=== PATIENT | female | born 1960 | race African-American/Black ===

== ENCOUNTER 2018-07-26 10:32 | Emergency (ER) | payer MEDICARE, OTHER ==
--- NOTE | 2018-07-26 11:58 | RAD REPORT ---
EXAM DESCRIPTION: RAD -Hand Left 3 View - 07/26/2018 11:30 am CLINICAL HISTORY: Left hand pain FINDINGS: No fracture or dislocation is seen. The bones are osteoporotic. If patient has clinical symptoms to suggest an occult fracture follow-up x-ray in 1 week would be recommended
--- NOTE | 2018-07-26 12:15 | EDPHYS ---
Physician Documentation [facility] Name: Adelina Hernandez Age: 57 yrs Sex: Female : 1960 Arrival Date: 07/26/2018 Time: 10:34 Bed 12 Private MD: ED Physician Jurgen Soto HPI: 07/26 10:56 This 57 yrs old Black Female presents to ER via Ambulatory with complaints of Finger rh1 Injury. 10:56 The patient or guardian reports decreased range of motion, pain, swelling, tenderness. rh1 The complaints affect the dorsal aspect of distal phalanx of left little finger, dorsal aspect of middle phalanx of left little finger, palmar aspect of distal phalanx of left little finger and palmar aspect of middle phalanx of left little finger. Context: The problem was sustained at home, resulted from an unknown cause. Onset: The symptoms/episode began/occurred 3 day(s) ago. Modifying factors: The symptoms are alleviated by nothing, the symptoms are aggravated by movement. Associated signs and symptoms: Pertinent negatives: cyanosis distally, decreased sensation distally, fever, numbness distally, tingling distally. Severity of symptoms: At their worst the symptoms were moderate, in the emergency department the symptoms are unchanged. The patient has not experienced similar symptoms in the past. The patient has not recently seen a physician. She has pain, swelling and increased redness at the left 5th finger for the past 3 days. She denies any known trauma or injury, awoke with symptoms 3 days ago, thought she may have caught her finger in the sheets. She has no fever, no paresthesias.. Historical: - Allergies: 10:45 Iodine; la1 10:45 Naprosyn; la1 10:45 beta blockers; la1 10:45 NSAID; la1 10:45 Allergic to most pain medicine; la1 12:16 Sulfa (Sulfonamide Antibiotics); rh1 - PMHx: 10:45 Hypertension; sarcoidosis; OA; psuedotumor cerebri; la1 - Immunization history:: Adult Immunizations up to date. - Social history:: Smoking status: Patient uses tobacco products, denies chronic smoking, but will smoke occasionally, Smoking status: Patient uses tobacco products. - Ebola Screening: : No symptoms or risks identified at this time. ROS: 10:56 Constitutional: Negative for fever rh1 10:56 MS/extremity: Positive for decreased range of motion, erythema, pain, swelling, tenderness, Negative for abrasion, contusion, ecchymosis, paresthesias. 10:56 Skin: Positive for erythema. 10:56 Neuro: Negative for numbness, tingling. 10:56 All other systems are negative. Exam: 10:56 Constitutional: This is a well developed, well nourished patient who is awake, alert, rh1 and in no acute distress. Head/Face: Normocephalic, atraumatic. Cardiovascular: Regular rate and rhythm with a normal S1 and S2. No gallops, murmurs, or rubs. No JVD. No pulse deficits. Respiratory: Lungs have equal breath sounds bilaterally, clear to auscultation. No rales, rhonchi or wheezes noted. No increased work of breathing. 10:56 Musculoskeletal/extremity: Extremities: grossly normal except: noted in the palmar aspect of middle phalanx of left little finger and palmar aspect of distal phalanx of left little finger and dorsal aspect of middle phalanx of left little finger and dorsal aspect of distal phalanx of left little finger: decreased ROM, erythema, pain, swelling, tenderness, There is no evidence of abrasion, contusion, ecchymosis, laceration, ROM: full passive range of motion, in the palmar aspect of middle phalanx of left little finger and palmar aspect of distal phalanx of left little finger and dorsal aspect of middle phalanx of left little finger and dorsal aspect of distal phalanx of left little finger, limited active range of motion, in the palmar aspect of middle phalanx of left little finger and palmar aspect of distal phalanx of left little finger and dorsal aspect of middle phalanx of left little finger and dorsal aspect of distal phalanx of left little finger, limited active range of motion due to pain, in the palmar aspect of middle phalanx of left little finger and palmar aspect of distal phalanx of left little finger and dorsal aspect of middle phalanx of left little finger and dorsal aspect of distal phalanx of left little finger, limited passive range of motion due to pain, in the palmar aspect of middle phalanx of left little finger and palmar aspect of distal phalanx of left little finger and dorsal aspect of middle phalanx of left little finger and dorsal aspect of distal phalanx of left little finger, Pulses: are normal with no appreciated deficits, noted to be 2+ in the right radial artery and left radial artery, Perfusion: the extremity is warm, with brisk capillary refill, left 5th finger, Sensation intact. 10:56 Skin: abscess, not appreciated, induration, that is mild is noted, Other very minimal erythema and indurated area a medial left 5th finger. 10:56 Neuro: Orientation: is normal, to person, place \T\ time. Mentation: is normal, lucid, able to follow commands, Motor: is normal, moves all fours, strength is 5/5 in all extremities, Sensation: is normal, no obvious gross deficits, numbness, is not appreciated, tingling, is not appreciated, Gait: is steady, at a normal pace, without difficulty. Vital Signs: 10:46 Pulse 70; Resp 16; Temp 97.3(TE); Pulse Ox 98% on R/A; Weight 60.78 kg; Height 5 ft. 3 la1 in. (160.02 cm); 10:47 BP 165 / 96; la1 10:46 Body Mass Index 23.74 (60.78 kg, 160.02 cm) la1 MDM: 10:56 Patient medically screened. rh1 12:13 Data reviewed: vital signs, nurses notes, radiologic studies, plain films, and as a rh1 result, I will discharge patient. Data interpreted: Pulse oximetry: on room air is 98 %. Interpretation: normal. Counseling: I had a detailed discussion with the patient and/or guardian regarding: the historical points, exam findings, and any diagnostic results supporting the discharge/admit diagnosis, radiology results, the need for outpatient follow up, a family practitioner, a hand specialist, to return to the emergency department if symptoms worsen or persist or if there are any questions or concerns that arise at home. 07/26 10:53 Order name: Hand Left 3 View XRAY; Complete Time: 11:59 rh1 07/26 12:00 Order name: Finger Splint; Complete Time: 12:26 rh1 Administered Medications: No medications were administered Disposition: 15:29 Co-signature as Attending Physician, Jurgen Stoo MD I agree with the assessment and kdr plan of care. Disposition: 11/03/18 12:14 Discharged to Home. Impression: Cellulitis of left finger. - Condition is Stable. - Discharge Instructions: Cellulitis, Adult. - Prescriptions for Keflex 500 mg Oral Capsule - take 1 capsule by ORAL route every 12 hours for 10 days; 20 capsule. - Medication Reconciliation Form, Thank You Letter, Antibiotic Education, Prescription Opioid Use form. - Follow up: Private Physician; When: 1 - 2 days; Reason: Recheck today's complaints, Continuance of care, Re-evaluation by your physician. Follow up: Gaurang Ford MD; When: 1 - 2 days; Reason: Further diagnostic work-up, Recheck today's complaints, Continuance of care. Follow up: Emergency Department; When: As needed; Reason: Fever > 102 F, If symptoms return, Trouble breathing, Worsening of condition. - Problem is new. - Symptoms have improved. Signatures: Dispatcher [employer] EDMS Jurgen Soto MD MD [facility] Remington Roy RN RN la1 Sultana Alexander NP SENIOR PASTOR rh1 Lydia Polo RN RN hb Corrections: (The following items were deleted from the chart) 12:27 12:14 07/26/2018 12:14 Discharged to Home. Impression: Cellulitis of left finger. hb Condition is Stable. Forms are Medication Reconciliation Form, Thank You Letter, Antibiotic Education, Prescription Opioid Use. Follow up: Private Physician; When: 1 - 2 days; Reason: Recheck today's complaints, Continuance of care, Re-evaluation by your physician. Follow up: Gaurang Ford; When: 1 - 2 days; Reason: Further diagnostic work-up, Recheck today's complaints, Continuance of care. Follow up: Emergency Department; When: As needed; Reason: Fever > 102 F, If symptoms return, Trouble breathing, Worsening of condition. Problem is new. Symptoms have improved. rh1
--- NOTE | 2018-07-26 12:15 | ER ---
Nurse's Notes [facility] Name: Adelina Hernandez Age: 57 yrs Sex: Female : 1960 Arrival Date: 07/26/2018 Time: 10:34 Bed 12 Private MD: Diagnosis: Cellulitis of left finger Presentation: 07/26 10:45 Presenting complaint: Patient states: I think I broke my left fifth finger, I woke up la1 and it was crooked, has been like that for 3 days. Transition of care: patient was not received from another setting of care. Onset of symptoms was July 26, 2018. Risk Assessment: Do you want to hurt yourself or someone else? Patient reports no desire to harm self or others. Initial Sepsis Screen: Does the patient meet any 2 criteria? No. Patient's initial sepsis screen is negative. Does the patient have a suspected source of infection? No. Patient's initial sepsis screen is negative. Care prior to arrival: None. 10:45 Method Of Arrival: Ambulatory la1 10:45 Acuity: LADI 4 la1 Historical: - Allergies: 10:45 Iodine; la1 10:45 Naprosyn; la1 10:45 beta blockers; la1 10:45 NSAID; la1 10:45 Allergic to most pain medicine; la1 12:16 Sulfa (Sulfonamide Antibiotics); rh1 - PMHx: 10:45 Hypertension; sarcoidosis; OA; psuedotumor cerebri; la1 - Immunization history:: Adult Immunizations up to date. - Social history:: Smoking status: Patient uses tobacco products, denies chronic smoking, but will smoke occasionally, Smoking status: Patient uses tobacco products. - Ebola Screening: : No symptoms or risks identified at this time. Screenin:00 Abuse screen: Denies threats or abuse. Denies injuries from another. Nutritional hb screening: No deficits noted. Tuberculosis screening: No symptoms or risk factors identified. Fall Risk None identified. Assessment: 11:00 General: Appears in no apparent distress. Behavior is calm, cooperative. Pain: Pain hb currently is 3 out of 10 on a pain scale. Neuro: Level of Consciousness is awake, alert, obeys commands, Oriented to person, place, time, situation. Cardiovascular: Capillary refill < 3 seconds Patient's skin is warm and dry. Respiratory: Airway is patent Trachea midline Respiratory effort is even, unlabored, Respiratory pattern is regular, symmetrical. GI: No signs and/or symptoms were reported involving the gastrointestinal system. : No signs and/or symptoms were reported regarding the genitourinary system. EENT: No signs and/or symptoms were reported regarding the EENT system. Derm: Skin is pink, warm \T\ dry. Musculoskeletal: redness and swelling noted to left little finger Reports pain in left little finger. 12:00 Reassessment: Patient appears in no apparent distress at this time. No changes from hb previously documented assessment. Patient and/or family updated on plan of care and expected duration. Pain level reassessed. Patient is alert, oriented x 3, equal unlabored respirations, skin warm/dry/pink. Vital Signs: 10:46 Pulse 70; Resp 16; Temp 97.3(TE); Pulse Ox 98% on R/A; Weight 60.78 kg; Height 5 ft. 3 la1 in. (160.02 cm); 10:47 BP 165 / 96; la1 10:46 Body Mass Index 23.74 (60.78 kg, 160.02 cm) la1 ED Course: 10:34 Patient arrived in ED. as 10:35 Sultana Alexander NP is PHCP. rh1 10:35 Jurgen Soto MD is Attending Physician. rh1 10:46 Triage completed. la1 10:46 Arm band placed on left wrist. la1 11:00 Patient has correct armband on for positive identification. Bed in low position. Call hb light in reach. Side rails up X 1. 11:30 Hand Left 3 View XRAY In Process Unspecified. EDMS 12:00 No provider procedures requiring assistance completed. Patient did not have IV access hb during this emergency room visit. 12:14 Gaurang Ford MD is Referral Physician. rh1 12:26 Lydia Polo, JOHNY is Primary Nurse. hb Administered Medications: No medications were administered Outcome: 12:00 Discharged to home ambulatory. hb 12:00 Condition: stable 12:00 Discharge instructions given to patient, Instructed on discharge instructions, follow up and referral plans. medication usage, Demonstrated understanding of instructions, follow-up care, medications, Prescriptions given X 1. 12:14 Discharge ordered by . rh1 12:27 Patient left the ED. hb Signatures: Dispatcher [employer] EDMS Saritha Phelps Attema, Remington, RN RN la1 Sultana Alexander, BREAD DISTRIBUTOR BREAD DISTRIBUTOR rh1 Lydia Polo, JOHNY RN hb
[2018-07-26 12:31] VITALS: TEMP 97.3; O2SAT 98
[2018-07-26 12:32] VITALS: BP 165/96
== END 2018-07-26 12:27 | disposition home or self-care (01) ==
LOC: ER 10:32
DX: L03.012 Cellulitis of left finger (principal); I10 Essential (primary) hypertension; Z88.2 Allergy status to sulfonamides; Z88.6 Allergy status to analgesic agent; Z88.8 Allergy status to other drugs, medicaments and biological substances; Z72.0 Tobacco use
CPT/HCPCS: 99283